=== PATIENT | male | born 1970 | race Caucasian/White ===

== ENCOUNTER → 2020-11-23 | Outpatient (CLI) | payer MEDICARE, OTHER ==
--- NOTE | 2020-11-30 08:54 | HM ---
This is a report on the 48 hour monitor. Baseline rhythm is sinus. Average heart rate is 82 with minimum of 51 and maximum 132. Occasional APCs were noted. Rare PVCs were noted. No sustained ventricular or supraventricular arrhythmias noted. Patient's markers are associated with sinus rhythm. Patient did not maintain a diary. Final impression: #1. Sinus rhythm. #2. Rare APCs. #3. Rare PVCs #4. Patient's markers associated with sinus rhythm. Patient did not maintain a diary. #5. No sustained arrhythmias noted. MTDD
== END | disposition home or self-care (01) ==
LOC: RADECHMAIN 12:19
PROVIDERS: ATTEND Family Medicine
DX: I49.1 Atrial premature depolarization (principal); I49.3 Ventricular premature depolarization
CPT/HCPCS: 93225; 93226

== ENCOUNTER → 2021-07-04 | Outpatient (CLI) | payer MEDICARE, OTHER ==
--- NOTE | 2021-07-04 14:59 | CT ---
EXAMINATION TYPE: CT soft tissue neck w con DATE OF EXAM: 07/04/2021 HISTORY: Localized swelling or mass. Lump in neck for 6 months. COMPARISON: NONE CT DLP: 460.90 mGycm. Automated Exposure Control for Dose Reduction was Utilized. TECHNIQUE: CT scan of the neck is performed with IV Contrast, patient injected with 100 mL of Isovue 300, axial images are obtained, coronal and sagittal reformatted images are reviewed. FINDINGS: Airway: Prominent lingual tonsillar tissue posterior tongue base. Patent airway. Thyroid gland appear s within normal limits. Some asymmetric fullness of the left piriform sinus without obvious mass. Vis ualized upper lungs are clear. Parotid/submandibular glands: No gross abnormality seen. Carotid/Vascular Structures: Dominant left vertebral artery fills the basilar artery. Mild to moderat e mixed plaque at carotid bulb level bilaterally without significant stenosis. Osseous Structures: Slight scoliotic curvature centered upper thoracic spine on coronal images. Other: Corresponding to palpable abnormality in the posterior right neck there is a heterogeneous rim -enhancing 2.2 x 1.7 cm lesion axial image 70 abutting the skin surface measuring 3.4 cm craniocaudal dimension coronal image 46. There is some outpouching of the skin at this level. Asymmetric right-si ded mild skin thickening. There are prominent but symmetric subcentimeter lymph nodes throughout the neck bilaterally. Slightly more prominent right-sided neck lymph nodes inferior to this for references 9 x 8 mm lymph node post erior to right internal jugular vein axial image 56 at level of the vocal cords. No definitive abnorm al greater than 1.0 cm lymph nodes. IMPRESSION: Heterogeneous rim-enhancing 3.4 cm oval mass suspected cystic lesion or central nonsimple fluid appears dermal or medially subdural in location. Suspect an infected dermatologic lesion such as infected sebaceous cyst. Other etiologies not excluded as there are slightly asymmetrically more p rominent right-sided lymph nodes versus left-sided lymph nodes inferior to this. Advised dermatologic follow-up and evaluation. Imaging guided sampling for further analysis can be performed.
== END | disposition home or self-care (01) ==
LOC: RADCTMAIN 14:11
PROVIDERS: ATTEND Family Medicine
DX: R22.1 Localized swelling, mass and lump, neck (principal)
CPT/HCPCS: 70491; Q9967

== ENCOUNTER → 2023-07-28 | Outpatient (CLI) | payer BC, MEDICARE, OTHER ==
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
== END | disposition home or self-care (01) ==
LOC: RADMRIMAIN 20:45
PROVIDERS: ATTEND Physical Medicine & Rehabilitation
DX: M50.10 Cervical disc disorder with radiculopathy, unspecified cervical region (principal); M47.22 Other spondylosis with radiculopathy, cervical region; M99.71 Connective tissue and disc stenosis of intervertebral foramina of cervical region
CPT/HCPCS: 72141

== ENCOUNTER → 2023-08-18 | Outpatient (CLI) | payer BC ==
--- NOTE | 2023-08-19 14:11 | MR ---
EXAMINATION TYPE: MR lumbar spine wo con DATE OF EXAM: 08/18/2023 8:20 PM CLINICAL INDICATION:Male, 53 years old with history of M54.16; PHH, Low back pain into left side COMPARISON: 07/11/2016 TECHNIQUE: Multi planar, multi sequence imaging was performed utilizing: T1-weighted, T2-weighted, a nd turbo inversion recovery imaging of the lumbar spine. IV Contrast: cc . (None if empty) FINDINGS: Alignment: The lumbar vertebral bodies have preserved heights and alignment. Cord: The conus medullaris and the distal spinal cord appear unremarkable with regards to their signa l intensity and morphology. Bones/Discs: Mild degeneration changes throughout the spine with osteophyte formation and facet joint arthropathy. Intervertebral disc signal is maintained. T12-L1: No evidence of significant spinal canal stenosis or neural foraminal stenosis. L1-L2: No evidence of significant spinal canal stenosis or neural foraminal stenosis. L2-L3: No evidence of significant spinal canal stenosis or neural foraminal stenosis. L3-L4: Disc bulge and facet joint arthropathy result in mild spinal canal and mild bilateral neural f oraminal stenosis. L4-L5: Disc bulge and facet joint arthropathy result in mild spinal canal and mild bilateral neural f oraminal stenosis. L5-S1: The disc is rounded posterior morphology without significant spinal canal stenosis. Facet join t arthropathy with mild bilateral neural foraminal stenosis. No significant spinal canal or neural foraminal stenosis in the remainder of the visualized levels. Other findings: None. IMPRESSION: 1. No definitive evidence of disc herniation or significant spinal canal stenosis. 2. Mild disc degeneration with associated osteoarthritic changes.
== END | disposition home or self-care (01) ==
LOC: RADMRIMAIN 19:45
PROVIDERS: ATTEND Physical Medicine & Rehabilitation
DX: Z02.9 Encounter for administrative examinations, unspecified (principal); M51.16 Intervertebral disc disorders with radiculopathy, lumbar region; M47.26 Other spondylosis with radiculopathy, lumbar region; M47.22 Other spondylosis with radiculopathy, cervical region; G89.4 Chronic pain syndrome
CPT/HCPCS: 72148

== ENCOUNTER 2023-08-30 14:24 | Emergency (ER) | payer BC ==
[2023-08-30 14:36] VITALS: TEMP 97.6
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
[2023-08-30] MEDS: SODIUM CHLORIDE 0.9% 1,000 ML IV STA (15:19)
[2023-08-30] MEDS: HYDROmorphone 0.5 MG/0.5 ML SYRINGE IVP STA (15:19)
[2023-08-30] MEDS: ONDANSETRON 4 MG/2 ML VIAL IVP STA (15:19)
[2023-08-30 15:20] LABS: HCT 44.1 % (39.0-53.0); HGB 14.9 gm/dL (13.0-17.5); MCH 30.9 pg (25.0-35.0); MCHC 33.7 g/dL (31.0-37.0); MCV 91.6 fL (80.0-100.0); Mean Platelet Volume 6.9; Platelet Count 199 k/uL (150-450); RBC 4.82 m/uL (4.30-5.90); RDW 13.4 % (11.5-15.5); WBC 8.3 k/uL (3.8-10.6)
[2023-08-30 15:23] LABS: ALT 18 U/L (4-49); AST 24 U/L (17-59); African American GFR (CKD) >90 (>60 ml/min/1.73 sqM); Albumin 4.2 g/dL (3.5-5.0); Alkaline Phosphatase 74 U/L (38-126); Anion Gap 6 mmol/L; Blood Urea Nitrogen 22 mg/dL (9-20); Calcium 9.7 mg/dL (8.4-10.2); Carbon Dioxide 28 mmol/L (22-30); Chloride 107 mmol/L (98-107); Glucose 102 mg/dL (74-99); Non-African American GFR(CKD) >90 (>60 ml/min/1.73 sqM); Potassium 4.3 mmol/L (3.5-5.1); Sodium 141 mmol/L (137-145); Total Bilirubin 0.3 mg/dL (0.2-1.3); Total Protein 6.9 g/dL (6.3-8.2)
--- NOTE | 2023-08-30 15:28 | CT ---
EXAMINATION TYPE: CT abdomen pelvis wo con CT DLP: 510.3 mGycm, Automated exposure control for dose reduction was used. DATE OF EXAM: 08/30/2023 3:19 PM COMPARISON: CT abdomen pelvis most recent from CLINICAL INDICATION:Male, 53 years old with history of right flank pain; RT side flank pain. TECHNIQUE: Axial CT of the abdomen and pelvis. Sagittal and coronal reformats were created on a [employer] workstation. Contrast used: (none if empty) Oral contrast used: without Oral Contrast (none if empty) FINDINGS: LOWER CHEST: Unremarkable ABDOMEN LIVER: Scattered hepatic cysts and granulomas are identified. GALLBLADDER AND BILE DUCTS: The gallbladder is nondistended with no gross abnormality. No biliary carlita steffen dilatation. PANCREAS: Unremarkable. SPLEEN: Unremarkable. ADRENAL GLANDS: Unremarkable. KIDNEYS AND URETERS: No evidence of hydronephrosis or renal calculus. The ureters are unremarkable. PELVIS BLADDER: Unremarkable REPRODUCTIVE: Unremarkable. ABDOMEN & PELVIS STOMACH AND BOWEL: Stomach and duodenum are unremarkable. No evidence of bowel obstruction. PERITONEUM/RETROPERITONEUM: No evidence of pneumoperitoneum or free fluid. VASCULATURE: Mild atherosclerotic calcifications are present throughout the abdominal aorta and its b ranches. No evidence of aortic aneurysm. MUSCULOSKELETAL: No acute osseous abnormalities. Mild disc degeneration changes are present throughou t the thoracolumbar spine. LYMPH NODES: No gross evidence for lymphadenopathy. SOFT TISSUE/ABDOMINAL WALL: Unremarkable IMPRESSION: No evidence of acute process or obstructive uropathy.
[2023-08-30 17:19] LABS: Appearance,Urine Cloudy (Clear); Bacteria,Urine Rare /hpf; Bilirubin,Urine Negative (Negative); Blood,Urine Negative (Negative); Color,Urine Light Yellow; Glucose,Urine (UA) Negative (Negative); Ketones,Urine Negative (Negative); Leukocyte Esterase,Urine Negative (Negative); Mucus,Urine Rare /hpf; Nitrite,Urine Negative (Negative); PH, Urine 7.5 (5.0-8.0); Protein,Urine Negative (Negative); RBC,Urine 4 /hpf (0-5); Specific Gravity,Urine 1.022 (1.001-1.035); Urobilinogen,Urine <2.0 mg/dL (<2.0)
[2023-08-30 17:43] VITALS: BP 135/79; PULSE 61; RESP 16
== END 2023-08-30 17:35 | disposition home or self-care (01) ==
LOC: EC 14:24
DX: M54.9 Dorsalgia, unspecified (principal); E78.5 Hyperlipidemia, unspecified; F17.200 Nicotine dependence, unspecified, uncomplicated; Z79.899 Other long term (current) drug therapy
CPT/HCPCS: 36415; 80053; 83605; 85027; 81001; 74176; 99284; 96374; 96375; 96361; J2405; J1170

== ENCOUNTER → 2025-01-16 | Outpatient (CLI) | payer BC ==
--- NOTE | 2025-01-16 14:56 | XR ---
EXAMINATION TYPE: XR elbow limited RT DATE OF EXAM: 01/16/2025 2:51 PM COMPARISON: None CLINICAL INDICATION: Male, 54 years old with history of M54.16, M25.519, S46.009A, M54.12, M25.559, M 25.55; PHH, pain TECHNIQUE: XR elbow limited RT; elbow was examined in AP, lateral, and oblique projections. FINDINGS: No evidence of any acute osseous pathology, joint dislocation, or soft tissue swelling is n oted. No evidence of joint effusion is present. IMPRESSION: No evidence of acute fracture. [facility], , 01/16/2025 2:54 PM
== END | disposition home or self-care (01) ==
LOC: RADXRMAIN 14:07
PROVIDERS: ATTEND Nurse Practitioner Family
DX: S46.001A Unspecified injury of muscle(s) and tendon(s) of the rotator cuff of right shoulder, initial encounter (principal); M25.551 Pain in right hip; G89.4 Chronic pain syndrome; M47.22 Other spondylosis with radiculopathy, cervical region; Z02.9 Encounter for administrative examinations, unspecified; M47.26 Other spondylosis with radiculopathy, lumbar region